=== PATIENT | female | born 1990 | race Caucasian/White ===

== ENCOUNTER → 2024-10-31 | Outpatient (CLI) | payer MEDICAID, SELFPAY ==
--- NOTE | 2024-10-31 14:08 | US_ITS ---
PROCEDURE: BREAST LIMITED UNILATERAL 10/31/2024 REASON FOR EXAM: F, Age 34 y/o, right subareolar mass. COMPARISON: Prior mammogram done earlier in the day.. TECHNIQUE: Procedure Code: [id number] Modality: US Procedure: BREAST LIMITED UNILATERAL. The retroareolar region of the right breast was examined with ultrasound. FINDINGS: Dense fibroglandular tissue seen. Mildly dilated subareolar ducts. No solid or cystic mass lesion is seen. US/Breast Limited Unilateral IMPRESSION: Mild degree of dilated retroareolar ducts. No solid or cystic mass is seen. BI-RADS 2: BENIGN RECOMMENDATION: Routine annual follow-up in 1 Year Reading Location: BLANK
--- NOTE | 2024-10-31 14:08 | BI_ITS ---
EXAM: DIAG MAMM W/CAD, BILAT 10/31/2024 CLINICAL HISTORY: F, Age 34 y/o , SUBAREOLAR MASS OF RIGHT BREAST. Zuska disease TECHNIQUE: Procedure Code: [id number] Modality: MG Procedure: DIAG MAMM W/CAD, BILAT. COMPARISON: Prior exam(s) dated outside examination dated December 07, 2023.. FINDINGS: TISSUE DENSITY: The breasts are heterogeneously dense, which may obscure small masses. Bilateral Breast Mammographic Findings: No significant masses, calcifications or other abnormalities are identified. BI/DIAG MAMM W/CAD, BILAT IMPRESSION: With the patient's history of right retroareolar nodule, targeted sonogram lon mmended. OVERALL FINAL ASSESSMENT BI-RADS 0: INCOMPLETE - NEED ADDITIONAL IMAGING EVALUATION. RECOMMENDATION: Ultrasound Recommended A letter with findings and recommendations will be mailed to the patient. Reading Location: [id number]
== END | disposition home or self-care (01) ==
PROVIDERS: Referring Provider Surgery; Visit Provider Surgery
DX: N63.41 Unspecified lump in right breast, subareolar (principal)
CPT/HCPCS: 77062; 76642; 77066; G0279